=== PATIENT | male | born 1950 | race Caucasian/White ===

== ENCOUNTER → 2016-12-29 | Outpatient (CLI) | payer MEDICARE, OTHER ==
--- NOTE | 2016-12-29 14:24 | CARD ---
APPROVED REPORT EXAM: Two-dimensional and M-mode echocardiogram with Doppler and color Doppler. Other Information Quality : GoodHR: 57bpm Rhythm : Bradycardia INDICATION Cardiac Disease: CAD 2D DIMENSIONS RVDd3.5 (2.9-3.5cm)Left Atrium(2D)3.9 (1.6-4.0cm) IVSd1.0 (0.7-1.1cm)Aortic Root(2D)3.1 (2.0-3.7cm) LVDd4.8 (3.9-5.9cm)LVOT Diameter2.6 (1.8-2.4cm) PWd1.2 (0.7-1.1cm)LVDs3.2 (2.5-4.0cm) FS (%) 33.6 %SV68.1 ml LVEF(%)62.3 (>50%) Aortic Valve AoV Peak Winston.130.4cm/sAoV VTI27.7cm AO Peak GR.6.8mmHgLVOT Peak Winston.93.3cm/s AO Mean GR.4mmHgAVA (VMAX)3.65cm2 Mitral Valve MV E Njcvgihc41.9cm/sMV E Peak Gr.2mmHg MV DECEL [id number] A Jxzpywos08.8cm/s MV E Mean Gr.1mmHgE/A Ratio0.8 MV A Rbtisdgd493uq Pulmonary Valve PV Peak Cuawtraa21.6cm/s Tricuspid Valve TR P. Esukkyth259qq/sTR Peak Gr.19mmHg Pulmonary Vein S1 Oigenzfr26.2cm/sD2 Serqjwjx47.9cm/s PVa usuzpdla72gpve LEFT VENTRICLE The left ventricle is normal size. There is mild concentric left ventricular hypertrophy. The left ve ntricular systolic function is normal. The Ejection Fraction is 55-60%. There is normal LV segmental wall motion. Transmitral Doppler flow pattern is Grade I-abnormal relaxation pattern. RIGHT VENTRICLE The right ventricle is normal size. There is normal right ventricular wall thickness. The right ventr icular systolic function is normal. ATRIA The left atrium size is normal. The right atrium size is normal. The interatrial septum is intact wit h no evidence for an atrial septal defect or patent foramen ovale as noted on 2-D or Doppler imaging. AORTIC VALVE The aortic valve is mildly sclerotic. The aortic valve is trileaflet. Doppler and Color Flow revealed no significant aortic regurgitation. There is no significant aortic valvular stenosis. MITRAL VALVE Mitral annular calcification is mild. The mitral valve leaflets are thickened. There is no evidence o f mitral valve prolapse. There is no mitral valve stenosis. Doppler and Color Flow revealed no mitral valve regurgitation noted. TRICUSPID VALVE Doppler and Color Flow revealed trace tricuspid regurgitation. The pulmonary artery systolic pressure is estimated at 22 mmHg. There is no pulmonary hypertension. PULMONIC VALVE Doppler and Color Flow revealed no pulmonic valvular regurgitation. There is no pulmonic valvular ian nosis. GREAT VESSELS The aortic root is normal in size. The ascending aorta is normal in size. The pulmonary artery is nor mal. The IVC is normal in size and collapses >50% with inspiration. PERICARDIAL EFFUSION There is no evidence of significant pericardial effusion. Critical Notification Critical Value: No <Conclusion> The left ventricular systolic function is normal. The Ejection Fraction is 55-60%. Doppler and Color Flow revealed trace tricuspid regurgitation. The pulmonary artery systolic pressure is estimated at 22 mmHg. There is no evidence of significant pericardial effusion.
== END | disposition home or self-care (01) ==
LOC: ECHO 12:27
PROVIDERS: ATTEND Internal Medicine Cardiovascular Disease
DX: I25.10 Atherosclerotic heart disease of native coronary artery without angina pectoris (principal); I35.8 Other nonrheumatic aortic valve disorders; I07.1 Rheumatic tricuspid insufficiency
CPT/HCPCS: 93306

== ENCOUNTER → 2017-07-20 | Outpatient (CLI) | payer MEDICARE, OTHER ==
[2017-07-20 09:09] LABS: ALBUMIN 3.9 g/dL (3.4-5.0); ALK PHOS 54 U/L (46-116); ALT (SGPT) 37 U/L (16-63); AST (SGOT) 27 U/L (15-37); CHOLESTEROL 154 mg/dL (0-200); DIRECT BILIRUBIN 0.1 mg/dL (0.0-0.2); HDLC 45 mg/dL (40-60); LDLC 93 mg/dL (0-100); NON-HDL CHOLESTEROL 109 mg/dL (0-129); TOTAL BILIRUBIN 0.6 mg/dL (0.2-1.0); TOTAL PROTEIN 7.6 g/dL (6.4-8.2); TRIGLYCERIDES 80 mg/dL (0-150); VLDLC 16 mg/dL (0-40)
[2017-07-20 09:12] LABS: CHOLESTEROL/HDL RATIO 3.4
[2017-07-20] MEDS: REGADENOSON 0.4 MG/5 ML DISP.SYRIN. IV (09:12)
== END | disposition home or self-care (01) ==
LOC: NM 07:33
DX: I25.10 Atherosclerotic heart disease of native coronary artery without angina pectoris (principal); I10 Essential (primary) hypertension; Z79.01 Long term (current) use of anticoagulants
CPT/HCPCS: 36415; 78452; 80061; 80076; 93017; 96374; 96375; 96376; A9500; J2785

== ENCOUNTER → 2018-07-25 | Outpatient (CLI) | payer MEDICARE, OTHER ==
[2018-07-25 09:13] LABS: ALBUMIN 3.6 g/dL (3.4-5.0); DIRECT BILIRUBIN 0.2 mg/dL (0.0-0.2); TOTAL BILIRUBIN 0.7 mg/dL (0.2-1.0); TOTAL PROTEIN 7.5 g/dL (6.4-8.2)
[2018-07-25 09:14] LABS: CHOLESTEROL/HDL RATIO 3.6
--- NOTE | 2018-07-25 09:30 | CARD ---
MR#: [id number] Date of Study: 07/25/2018 Ordering Physician: ANGELA BARRIGA, Referring Physician: ANGELA BARRIGA Tech: Stephanie Murphy RDCS APPROVED REPORT EXAM: Two-dimensional and M-mode echocardiogram with Doppler and color Doppler. Other Information Quality : AverageHR: 55bpm Rhythm : NSR INDICATION CAD 2D DIMENSIONS RVDd3.6 (2.9-3.5cm)Left Atrium(2D)5.0 (1.6-4.0cm) IVSd1.3 (0.7-1.1cm)Aortic Root(2D)3.2 (2.0-3.7cm) LVDd4.5 (3.9-5.9cm)LVOT Diameter2.5 (1.8-2.4cm) PWd1.0 (0.7-1.1cm)LVDs3.2 (2.5-4.0cm) FS (%) 29.1 %SV51.7 ml LVEF(%)56.0 (>50%) M-Mode DIMENSIONS Left Atrium(MM)4.70 (2.5-4.0cm)Aortic Root3.87 (2.2-3.7cm) Aortic Valve AoV Peak Winston.116.3cm/sAoV VTI25.7cm AO Peak GR.5.4mmHgLVOT Peak Winston.86.7cm/s AO Mean GR.3mmHgAVA (VMAX)3.57cm2 ANA (VTI)3.50cm2 Mitral Valve MV E Ivopfjzl49.1cm/sMV DECEL VWJC463ki MV A Eoovxtgl49.6cm/sE/A Ratio1.1 MV A Buijpavh68lr Pulmonary Valve PV Peak Cvvizlpb192.6cm/s Tricuspid Valve TR P. Elygpeed141xq/sRAP JZMJNSOD5hkNo TR Peak Gr.91dgLhEDYP26qpNz Pulmonary Vein S1 Kgxpkwzs62.7cm/sD2 Krlvdooh11.5cm/s PVa [id number] LEFT VENTRICLE The left ventricle is normal size. Proximal septal thickening is noted. The left ventricular systolic function is normal. The Ejection Fraction is 55%. There is normal LV segmental wall motion. Transmit ral Doppler flow pattern is Grade II-pseudonormal filling dynamics. RIGHT VENTRICLE The right ventricle is mildly dilated. There is normal right ventricular wall thickness. The right ve ntricular systolic function is normal. ATRIA The left atrium is moderately dilated. The right atrium is moderately dilated. The interatrial septum is intact with no evidence for an atrial septal defect or patent foramen ovale as noted on 2-D or Do ppler imaging. AORTIC VALVE The aortic valve is normal in structure and function. The aortic valve is trileaflet. Doppler and Col or Flow revealed trace aortic regurgitation. There is no significant aortic valvular stenosis. MITRAL VALVE The mitral valve is normal in structure and function. There is no evidence of mitral valve prolapse. There is no mitral valve stenosis. Doppler and Color-flow revealed trace mitral regurgitation. TRICUSPID VALVE The tricuspid valve is normal in structure and function. Doppler and Color Flow revealed trace tricus pid regurgitation. The PA pressure was estimated at 19 mmHg. There is no tricuspid valve prolapse or vegetation. There is no tricuspid valve stenosis. PULMONIC VALVE The pulmonary valve is normal in structure and function. Doppler and Color Flow revealed trace pulmon ic valvular regurgitation. There is no pulmonic valvular stenosis. GREAT VESSELS The aortic root is normal in size. The ascending aorta is normal in size. The IVC is normal in size a nd collapses >50% with inspiration. PERICARDIAL EFFUSION There is no evidence of significant pericardial effusion. Critical Notification Critical Value: No <Conclusion> The left ventricular systolic function is normal. The Ejection Fraction is 55%. There is normal LV segmental wall motion. Transmitral Doppler flow pattern is Grade II-pseudonormal filling dynamics. The left atrium is moderately dilated. Trace mitral regurgitation. Trace tricuspid regurgitation. The PA pressure was estimated at 19 mmHg. There is no evidence of significant pericardial effusion. Signed by : Angela Barriga, Electronically Approved : 07/25/2018 09:28:37
== END | disposition home or self-care (01) ==
LOC: ECHO 07:48
PROVIDERS: ATTEND Internal Medicine Cardiovascular Disease
DX: E78.5 Hyperlipidemia, unspecified (principal); I37.1 Nonrheumatic pulmonary valve insufficiency; I25.10 Atherosclerotic heart disease of native coronary artery without angina pectoris; I10 Essential (primary) hypertension
CPT/HCPCS: 36415; 80061; 80076; 93306

== ENCOUNTER → 2020-07-29 | Outpatient (CLI) | payer MEDICARE, OTHER ==
[2020-07-29 07:45] LABS: BASO % 1 % (0-3); EOS # 0.1 x10^3/uL (0.0-0.7); EOS % 2 % (0-3); HEMATOCRIT 43.6 % (39.0-53.0); HEMOGLOBIN 14.6 g/dL (13.0-17.5); LYMPH # 1.5 x10^3/uL (1.0-4.8); LYMPH % 26 % (24-48); MEAN CORPUSCULAR HEMOGLOBIN 31 pg (25-35); MEAN CORPUSCULAR HGB CONC 34 g/dL (31-37); MEAN CORPUSCULAR VOLUME 92 fL (79-100); MONO # 0.7 x10^3/uL (0.0-1.1); MONO % 11 % (0-9); NEUT # 3.6 x10^3/uL (1.8-7.7); NEUT % 61 % (31-73); PLATELET COUNT 208 x10^3/uL (140-400); RED BLOOD COUNT 4.76 x10^6/uL (4.30-5.70); RED CELL DISTRIBUTION WIDTH 13.1 % (11.5-14.5)
[2020-07-29 08:17] LABS: ALBUMIN 3.8 g/dL (3.4-5.0); ALBUMIN/GLOBULIN RATIO 1.1 (1.0-1.7); CALCIUM 9.8 mg/dL (8.5-10.1); CREATININE 1.3 mg/dL (0.7-1.3); DIRECT BILIRUBIN 0.2 mg/dL (0.0-0.2); GFR 54.4; TOTAL BILIRUBIN 0.9 mg/dL (0.2-1.0); TOTAL PROTEIN 7.3 g/dL (6.4-8.2)
[2020-07-29 08:19] LABS: CHOLESTEROL/HDL RATIO 3.5
--- NOTE | 2020-07-29 10:20 | RAD ---
MR#: [id number] Date of Study: 07/29/2020 Ordering Physician: ANGELA MCINTYRE, Referring Physician: ANGELA MCINTYRE, Tech: APPROVED REPORT Patient Location: OUT-PATIENT Laterality:Bilateral Indications Bruit Doppler Spectral Velocity Analysis Right Left pCCA 129/21 cm/spCCA 123/31 cm/s mCCA 95/18 cm/smCCA 76/19 cm/s dCCA 84/16 cm/sdCCA 81/19 cm/s ECA 141/ cm/sECA 123/ cm/s pICA 74/13 cm/spICA 63/15 cm/s Julius 60/18 cm/smICA 55/17 cm/s dICA 52/19 cm/sdICA 63/23 cm/s ICA/CCA 0.57ICA/CCA 0.51 Findings Grayscale images of the bilateral common carotid, external and internal carotid vessels demonstrates mild diffuse intimal hyperplasia. Mildly elevated velocities at the bilateral common carotid arterie s, no clear evidence of significant stenosis noted. Based on velocity criteria and Doppler waveforms there is overall 0 to less than 50% stenosis in the bilateral internal carotid arteries. Normal ICA to CCA ratios bilaterally. Normal vertebral antegra de velocities. Bilateral external carotid arteries demonstrate moderate 50 to 69% stenosis based on velocity criteri a. Critical Notification Critical Value: No <Conclusion> 1. No significant carotid occlusive disease bilaterally. Signed by : Blayne Mayers, Electronically Approved : 07/29/2020 10:19:50
--- NOTE | 2020-07-29 12:26 | CARD ---
MR#: [id number] Date of Study: 07/29/2020 Ordering Physician: ANGELA MCINTYRE, Referring Physician: ANGELA MCINTYRE Tech: Deb Abebe [facility] APPROVED REPORT EXAM: Two-dimensional and M-mode echocardiogram with Doppler and color Doppler. Other Information Quality : Average INDICATION Chest Pain RISK FACTORS Hypertension Obesity Hyperlipidemia 2D DIMENSIONS Left Atrium(2D)4.5 (1.6-4.0cm)Aortic Root(2D)3.1 (2.0-3.7cm) LVOT Diameter2.6 (1.8-2.4cm) Mitral Valve MV E Lktwqcnv32.7cm/sMV DECEL RHRY125mu MV A Uvikrggi74.2cm/sMV WAJ418cw E/A Ratio0.7MVA (PHT)1.81cm2 TDI E/Lateral E'5.3E/Medial E'7.2 Pulmonary Valve PV Peak Werblbna125.2cm/sPV Peak Grad.8mmHg Tricuspid Valve TR P. Jtoilsry369gx/sTR Peak Gr.16mmHg Pulmonary Vein S1 Dipiyxpp90.3cm/sD2 Vrcghdlt26.9cm/s PVa nloviqdv937ymdv LEFT VENTRICLE The left ventricle is normal size. There is normal left ventricular wall thickness. The left ventricu lar systolic function is normal and the ejection fraction is within normal range. Estimated ejection fraction 50-55%. There is normal LV segmental wall motion. Transmitral Doppler flow pattern is Grade I-abnormal relaxation pattern. RIGHT VENTRICLE The right ventricle is normal size. There is normal right ventricular wall thickness. The right ventr icular systolic function is normal. ATRIA The left atrium size is normal. The right atrium size is normal. The interatrial septum is intact wit h no evidence for an atrial septal defect or patent foramen ovale as noted on 2-D or Doppler imaging. AORTIC VALVE The aortic valve is normal in structure and function. Doppler and Color Flow revealed no significant aortic regurgitation. There is no significant aortic valvular stenosis. MITRAL VALVE The mitral valve is normal in structure and function. There is no evidence of mitral valve prolapse. There is no mitral valve stenosis. Doppler and Color-flow revealed trace to mild mitral regurgitation . TRICUSPID VALVE The tricuspid valve is normal in structure and function. Doppler and Color Flow revealed mild tricusp id regurgitation. Estimated PAP 20 mmHg. There is no tricuspid valve stenosis. PULMONIC VALVE Not well visualized. GREAT VESSELS The aortic root is normal in size. The ascending aorta is normal in size. The IVC is normal in size a nd collapses >50% with inspiration. PERICARDIAL EFFUSION There is no evidence of significant pericardial effusion. Critical Notification Critical Value: No <Conclusion> The left ventricular systolic function is normal and the ejection fraction is within normal range. E stimated ejection fraction 50-55%. There is normal LV segmental wall motion. Doppler and Color Flow revealed mild tricuspid regurgitation. Estimated PAP 20 mmHg. Signed by : Blayne Mayers, Electronically Approved : 07/29/2020 12:26:18
[2020-07-29 19:19] LABS: TESTOSTERONE TOTAL 404 ng/dL (264-916)
[2020-07-30 01:35] LABS: HEMOGLOBIN A1C 5.7 % (4.8-5.6)
== END ==
LOC: ECHO 08:53
PROVIDERS: ATTEND Internal Medicine Cardiovascular Disease
DX: I08.1 Rheumatic disorders of both mitral and tricuspid valves (principal); I65.23 Occlusion and stenosis of bilateral carotid arteries; I25.10 Atherosclerotic heart disease of native coronary artery without angina pectoris; E78.5 Hyperlipidemia, unspecified; I10 Essential (primary) hypertension; R53.83 Other fatigue
CPT/HCPCS: 36415; 80053; 80061; 80076; 82306; 83036; 84403; 84443; 85025; 93306; 93880

== ENCOUNTER → 2021-08-10 | Outpatient (CLI) | payer MEDICARE, OTHER ==
[~2021-08-10] MED LIST: REGADENOSON 0.4 MG/5 ML DISP.SYRIN. IV ONE
[2021-08-10 08:52] LABS: CHOLESTEROL/HDL RATIO 2.9
--- NOTE | 2021-08-11 14:46 | RAD ---
MR#: [id number] Date of Study: 08/10/2021 Ordering Physician: ANILA RAVI, Referring Physician: RONN ESQUIVEL Tech: APPROVED REPORT Test Type: Pharmacological Stress Nurse/Tech: Andreina Sanders RN Test Indications: Chronic diastolic heart failure Cardiac History: Hypertension,CAD,PTCA Medications: See Electronic Medical Record Medical History: See Electronic Medical Record Resting ECG: SB Resting Heart Rate: 51 bpm Resting Blood Pressure: 146/98mmHg Pretest Chest Pain: No chest pain Nurse/Tech Notes S1,S2 and lungs clear to auscultation. Pharm. Details Pharmacologic stress testing was performed using 0.4mg per 5ml of regadenoson given intravenously ove r 7-10 seconds. Stress Symptoms No chest pain or symptoms. POST EXERCISE Reason for Termination: Infusion complete Target HR: No Max HR: 79 bpm 63% of Maximum Predicted HR: 125 bpm Max Blood Pressure: 164/77mmHg Blood Pressure response to exercise: Normal blood pressure response during stress. Heart Rate response to exercise: WNL Chest Pain: No. Arrhythmia: No. ST Change: No. INTERPRETATION Stress EKG Conclusion: No evidence of stress-induced EKG changes. The rest and stress images show normal perfusion, normal contraction and thickening. Other Information Quality:Average Risk Assessment: Low Risk Conclusion 1. No evidence of EKG changes with stress testing. 2. Normal perfusion at stress/rest. 3. Low risk study. 4. EF > 60%. Signed by : Lori Esquivelally Approved : 08/11/2021 14:46:24
== END ==
LOC: NM 07:43
PROVIDERS: ATTEND Internal Medicine Cardiovascular Disease
DX: I50.32 Chronic diastolic (congestive) heart failure (principal)
CPT/HCPCS: 36415; 78452; 80061; 93017; A9500; J2785